=== PATIENT | male | born 2000 | race Asian ===

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

== ENCOUNTER 2018-05-24 00:46 | Emergency (ER) | payer OTHER ==
[~2018-05-24] VITALS: Ht 170.2 cm; Wt 77.0 kg
[2018-05-24 00:52] VITALS: TEMP 36.9; Ht 170.2 cm; Wt 77.0 kg
[2018-05-24] MEDS ORDERED: METRONIDAZOLE 250 MG TAB PO STA (01:08)
[2018-05-24] MEDS ORDERED: CIPR-255 PO (01:15)
[2018-05-24] MEDS ORDERED: HYDR-5688 PO (01:15)
[2018-05-24] MEDS ORDERED: NORCO 5/325MG HOME PACK PO ONE (01:15)
[2018-05-24] MEDS ORDERED: METR-162 PO (01:15)
[2018-05-24] MEDS ORDERED: CIPROFLOXACIN 500MG HOME PACK PO ONE (01:15)
[2018-05-24 01:29] VITALS: BP 138/75; PULSE 85; O2SAT 97
--- NOTE | 2018-05-24 06:18 | EMERGENCY ROOM VISIT NOTE ---
History First contact with patient: 00:56 Chief Complaint: WOUND INFECTION Stated Complaint: BLOOD COMING OF SURGICAL WOUND Nursing Triage Summary: Pt had pilonidal cyst removed 3 weeks ago and today it started draining. History of Present Illness The patient is a 18 year old male who presents to the Emergency Room with complaints of bleeding from his pilonidal cyst area. 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 The patient evidently had recurrent pilonidal abscess formation, and 3 weeks ago underwent surgical removal of the abscess/cyst area. The patient was doing very well postoperatively. He had his sutures removed 3 or 4 days ago, just before returning to the [facility]. The patient has not had fever or chills, but states that today he noticed blood and drainage from the area. He does not report injury or trauma. No significant pain. He rates his discomfort a 2/10. Review of Systems More than 10 systems were reviewed and otherwise negative with the exception of history of present illness. Past Medical/Surgical History Medical Problems: (1) Kidney stone Family History Hypertension Kidney stones Social History Smoking Status: Never Smoker Housing Status: lives with roommate Occupation Status: [employer] student Current/Historical Medications Scheduled Ciprofloxacin Hcl (Cipro), 500 MG PO BID Metronidazole (Flagyl), 500 MG PO TID Scheduled PRN Hydrocodone/Acetaminophen 5MG/325MG ([place] 5MG/325MG), 1 TABLET PO Q6 PRN for Pain Physical Exam Vital Signs Date Time Temp Pulse Resp B/P (MAP) Pulse Ox O2 Delivery O2 Flow Rate FiO2 05/24/18 01:29 85 18 138/75 97 Room Air 05/24/18 00:52 36.9 90 17 143/76 96 Room Air Physical Exam VITALS: Vitals are noted on the nurse's note and reviewed by myself. Vital signs stable. GENERAL: Well-developed, well-nourished, male, who is in no acute distress and resting comfortably. Patient is cooperative with the examination. HEAD: Normocephalic atraumatic. LUNGS: Clear to auscultation bilaterally without wheezes, rales or rhonchi. No retractions or accessory muscle use. ABDOMEN: Positive normal bowel sounds x 4. Soft, nontender, without masses or organomegaly. No guarding or rebound tenderness. SKIN: The skin was with a dehisced surgical incision in the pilonidal region. The wound is without gross abscess or tenderness. There is some scant bloody drainage and discharge. Medical Decision & Procedures Medications Administered Medications (Trade) Dose Ordered Sig/Roxy Route Start Time Stop Time Status Last Admin Dose Admin Metronidazole (Flagyl Tab) 500 mg NOW STAT PO 05/24/18 01:08 05/24/18 01:10 DC 05/24/18 01:19 500 MG Ciprofloxacin (Cipro 500MG Home Pack) 1 homepack UD ONCE PO 05/24/18 01:15 05/24/18 01:16 DC 05/24/18 01:19 1 HOMEPACK Acetaminophen/ Hydrocodone Bitart ([place] 5/325mg Home Pack) 1 homepack UD ONCE PO 05/24/18 01:15 05/24/18 01:16 DC 05/24/18 01:19 1 HOMEPACK ED Course Physical exam and history were performed. Nursing notes, EMR, and Medication List were personally reviewed. Patient appears to have drainage and discharge from a previously removed pilonidal cyst/abscess. On examination it appears that his surgical wound has dehisced and is opened. The patient does not have significant tenderness or gross infection in the site. I have concerned as this does measure roughly 3 cm in total length. He will need to follow with a surgeon for more appropriate evaluation, and he is to call them first thing in the morning to arrange this. I will cover him with Cipro and Flagyl for possible infection. He will be given a short course of pain medication to use if needed. The patient was invited back to the ER with any new, worsening, or concerning symptoms. The chart was completed utilizing [employer] Speech Voice Recognition Software. Grammatical errors, random word insertions, pronoun errors, and incomplete sentences are an occasional consequence of this system due to software limitations, ambient noise, and hardware issues. Any formal questions or concerns about the content, text, or information contained within the body of this dictation should be directly addressed to the provider for clarification. . Medical Decision Differential diagnosis includes, but is not limited to: Infection, abscess, dehisced wound, surgical complication, and others Impression Primary Impression: Surgical wound dehiscence Departure Information Dispostion Home / Self-Care Condition GOOD Prescriptions Hydrocodone/Acetaminophen 5MG/325MG ([place] 5MG/325MG) Tab 1 TABLET PO Q6 Y for Pain, #12 TAB For Initial Treatment Prov: Eduar Rivero PA-C 05/24/18 Metronidazole (FLAGYL) 500 Mg Tab 500 MG PO TID for 9 Days, #27 TAB Prov: Eduar Rivero PA-C 05/24/18 Ciprofloxacin Hcl (CIPRO) 500 Mg Tab 500 MG PO BID for 9 Days, #18 TAB Prov: Eduar Rivero PA-C 05/24/18 Referrals Smooth Sandoval D.O. Forms HOME CARE DOCUMENTATION FORM, IMPORTANT VISIT INFORMATION Patient Instructions My [facility] Additional Instructions You were seen and evaluated today on an emergency basis only. This is not a substitute for, or an effort to provide, complete comprehensive medical care. It is not possible to recognize and treat all injuries or illnesses in a single emergency department visit. For this reason it is recommended that you followup with General surgery, Dr. Sandoval's office, by telephone in the morning to arrange a follow-up visit in the next week. Ciprofloxacin(Cipro) 500mg: Take one pill twice daily for 10 days for your infection. All antibiotics can cause diarrhea. If this occurs and you feel worse or it does not resolve in 1-2 days follow up with your doctor or return to the Emergency Department as this could be signs of serious underlying problems. If you experience any pain in your tendons or any tendon injury return to the ER for re-evaluation. Any medication can cause an allergic reaction, stop the pills immediately and return to the ER for rash, hives, breathing difficulties, or swelling. Metronidazole(Flagyl) 500mg: Take one pill three times daily for 10 days for your infection. DO NOT drink alcohol or take alcohol containing products with this medication. Any medication can cause an allergic reaction, stop the pills immediately and return to the ER for rash, hives, breathing difficulties, or swelling. [place] (hydrocodone/acetaminophen) 5/325 mg: Take ONE pill by mouth every 6 hours as needed for worsening breakthrough pain. Do not drink or drive on [place]. This medication will likely make you tired. Do not take [place] and Tylenol at the same time as both contain acetaminophen. [place] may cause constipation. You may wish to take an [id number] stool softener like Colace if this occurs. You are welcome to return to the emergency department anytime with new, worsening, or concerning symptoms.
== END 2018-05-24 01:39 | disposition home or self-care (01) ==
LOC: C.EDB 00:48
DX: T81.31XA Disruption of external operation (surgical) wound, not elsewhere classified, initial encounter (principal); X58.XXXA Exposure to other specified factors, initial encounter; Z98.890 Other specified postprocedural states